=== PATIENT | female | born 1965 | race Two or more races ===

== ENCOUNTER 2021-11-19 11:15 | Inpatient (IN) | payer OTHER ==
[~2021-11-19] VITALS: Ht 149.9 cm; Wt 66.2 kg
[2021-11-19] MEDS ORDERED: METFORM PO (13:31)
[2021-11-19] MEDS ORDERED: COZAAR25 MG PO (13:31)
[2021-11-19] MEDS ORDERED: PLAVIX75 MG PO (13:32)
[2021-11-19] MEDS ORDERED: ATORVASTATIN CA20 MG PO (13:32)
[2021-11-19] MEDS ORDERED: HYDROCHLOROTH12.5 MG PO (13:32)
[2021-11-19] MEDS ORDERED: SYNTHROID75 MCG PO (13:33)
[2021-11-19] MEDS ORDERED: CLONAZEPAM0.5 MG PO (13:33)
[2021-11-19] MEDS ORDERED: HORIZANT300 MG PO (13:33)
[2021-11-19] MEDS ORDERED: WELLBUTRIN XL300 MG (13:34)
[2021-11-19] MEDS ORDERED: NASAL MIST126 ML (13:34)
[2021-11-19] MEDS ORDERED: WELLBUTRIN XL300 MG PO (13:34)
[2021-11-19] MEDS ORDERED: REMERON15 MG PO (13:35)
[2021-11-19] MEDS ORDERED: ABILIFY MYCITE15 MG PO (13:35)
[2021-11-19] MEDS ORDERED: RESTORIL (13:36)
[2021-11-23] MEDS ORDERED: METFORMIN HCL750 MG (14:41)
[2021-11-23] MEDS ORDERED: RESTORIL30 M1 (14:43)
== END 2021-11-26 14:11 | disposition home or self-care (01) | DRG 331 ==
LOC: O/R 11-23 07:00 → SURH 11-23 11:15
PROVIDERS: ADMIT Colon & Rectal Surgery; ATTEND Colon & Rectal Surgery
PROC: 0DBP4ZZ Excision of Rectum, Percutaneous Endoscopic Approach (ICD-10-PCS; 2021-11-23)
PROC: 0DJD8ZZ Inspection of Lower Intestinal Tract, Via Natural or Artificial Opening Endoscopic (ICD-10-PCS; 2021-11-23)
PROC: 4A1BXSH Monitoring of Gastrointestinal Vascular Perfusion using Indocyanine Green Dye, External Approach (ICD-10-PCS; 2021-11-23)
PROC: 0DTN4ZZ Resection of Sigmoid Colon, Percutaneous Endoscopic Approach (ICD-10-PCS; principal; 2021-11-23 12:30)
DX: K57.20 Diverticulitis of large intestine with perforation and abscess without bleeding (principal); R10.32 Left lower quadrant pain; R59.0 Localized enlarged lymph nodes; K63.5 Polyp of colon; I10 Essential (primary) hypertension; Z20.822 Contact with and (suspected) exposure to COVID-19

== ENCOUNTER 2021-11-21 08:26 | Day surgery (SDC) | payer OTHER ==
[~2021-11-21 08:26] MED LIST: ABILIFY MYCITE15 MG PO; ATORVASTATIN CA20 MG PO; CLONAZEPAM0.5 MG PO; COZAAR25 MG PO; HORIZANT300 MG PO; HYDROCHLOROTH12.5 MG PO; METFORM PO; NASAL MIST126 ML; PLAVIX75 MG PO; REMERON15 MG PO; RESTORIL; SYNTHROID75 MCG PO; WELLBUTRIN XL300 MG; WELLBUTRIN XL300 MG PO
== END 2021-11-21 14:25 | disposition home or self-care (01) ==
LOC: AMB-ENDOS 08:26 → CIR.AMB 10:00 → AMB-ENDOS 14:25
PROVIDERS: ATTEND Colon & Rectal Surgery
DX: K57.20 Diverticulitis of large intestine with perforation and abscess without bleeding (principal); Z20.822 Contact with and (suspected) exposure to COVID-19; I10 Essential (primary) hypertension; E11.9 Type 2 diabetes mellitus without complications; Z79.84 Long term (current) use of oral hypoglycemic drugs